=== PATIENT | male | born 1935 | race Caucasian/White ===

== ENCOUNTER → 2016-09-29 | Outpatient (CLI) | payer BC ==
[~2016-09-29] MED LIST: ALLEGRA PO; ASPCH81 PO; ATOR-26 PO; CLOP1TAB15 PO; METO50TA7 PO; NASACORT; OXYC-57 PO; SPIR25TA PO
[2016-09-29 09:33] LABS: BASO % 1.1 %; BASO ABS # 0.09 K/uL (0-0.2); COMPLETE YES; EOS % 9.1 %; HEMATOCRIT 45.1 % (42-52); IG% 0.6 %; LYMPH % 24.5 %; LYMPH ABS # 1.94 K/uL (1.2-3.4); MEAN CELL VOLUME 93.2 fL (80-100); MEAN CORPUSCULAR HEMOGLOBIN 32.4 pg (25-34); MEAN CORPUSCULAR HGB CONC 34.8 g/dl (32-36); MEAN PLATELET VOLUME 10.5 fL (7.4-10.4); MONO % 16.5 %; NEUT % 48.2 %; PLATELET COUNT 184 K/uL (130-400); RED BLOOD COUNT 4.84 M/uL (4.7-6.1); WHITE BLOOD COUNT 7.92 K/uL (4.8-10.8)
[2016-09-29 09:53] LABS: ALB/GLOB RATIO 1.1 (0.9-2); ALT/SGPT 18 U/L (12-78); AST/SGOT 16 U/L (15-37); BLOOD UREA NITROGEN 22 mg/dl (7-18); BUN/CREATININE RATIO 20.3 (10-20); CALCIUM 8.3 mg/dl (8.5-10.1); CARBON DIOXIDE 27 mmol/L (21-32); CHLORIDE 106 mmol/L (98-107); CHOLESTEROL 177 mg/dl (0-200); GLUCOSE 93 mg/dl (70-99); POTASSIUM 3.9 mmol/L (3.5-5.1); SODIUM 141 mmol/L (136-145); TRIGLYCERIDES 76 mg/dl (0-150); VERY LOW DENSITY LIPOPROT CALC 15 mg/dl
[2016-09-29 10:02] LABS: ALKALINE PHOSPHATASE 107 U/L (45-117); CHOLESTEROL/HDL RATIO 2.2; HDL CHOLESTEROL 81 mg/dl; LDL CHOLESTEROL CALCULATED 81 mg/dl
== END | disposition home or self-care (01) ==
LOC: C.LAB1850 07:57
PROVIDERS: ATTEND Internal Medicine Pulmonary Disease
DX: I25.10 Atherosclerotic heart disease of native coronary artery without angina pectoris (principal); E78.5 Hyperlipidemia, unspecified; I25.2 Old myocardial infarction; I11.9 Hypertensive heart disease without heart failure; E03.9 Hypothyroidism, unspecified

== ENCOUNTER → 2017-10-27 | Outpatient (CLI) | payer BC ==
--- NOTE | 2017-10-27 10:55 | DIAGNOSTIC IMAGING REPORT ---
EXAMINATION: RENAL ULTRASOUND CLINICAL HISTORY: N39.0 Urinary tract [id number] BPH (benign prostatic hyperplasia COMPARISON STUDY: FINDINGS: The right kidney measures 9.9 cm. The left kidney measures 10.3 cm. There is mild bilateral hydronephrosis left greater than right. There are no renal masses. The bladder was not well-distended. Neither ureteral jet was visualized. There is a post void volume of 3 cc. IMPRESSION : 1. Very mild bilateral hydronephrosis left greater than right 2. No masses identified. Electronically signed by: King Daniels M.D. 10/27/2017 10:54 AM Dictated Date/Time: 10/27/2017 10:52 AM
== END | disposition home or self-care (01) ==
LOC: C.ULTR 10:06
PROVIDERS: ATTEND Urology
DX: N39.0 Urinary tract infection, site not specified (principal); N40.0 Benign prostatic hyperplasia without lower urinary tract symptoms

== ENCOUNTER 2021-05-27 11:37 | Inpatient (IN) ==
--- NOTE | 2021-05-27 12:08 | Emergency Department Note ---
Impression & Plan CVA (cerebral vascular accident), [facility] ED Provider Note NAME: RENA MARQUEZ AGE: 86 SEX: M : 1935 ARRIVES VIA: Walk-In INFORMANT: Patient ED PROVIDER(S): Jhonny Evans DO CHIEF COMPLAINT: slurred speech HPI: Patient is an 86-year-old male who was seen in the ER this past Tuesday. Symptoms started Tuesday with dizziness and feeling unsteady and slurred speech. Patient was seen and evaluated here in the ER and sent home following a negative CT and CTAs of the head and neck. He followed up with his PCP and had MRIs and was referred over for possible stroke on the MRI. Patient admits to slurred speech and some trouble walking. He denies any headache or change in vision. No chest pain or shortness of breath. No nausea vomiting or diarrhea. No weakness or numbness in his arms or legs. No other exacerbating or remitting factors. ROS: See above HPI for pertinent positives & negatives. A total of 10 systems reviewed and were otherwise negative. PAST MEDICAL HISTORY:See Below PAST SURGICAL HISTORY:See Below FAMILY HISTORY:See Below SOCIAL HISTORY:See Below HOME MEDICATIONS:See Below ALLERGIES:See Below VITALS:See Below PHYSICAL EXAMINATION: GENERAL: Sitting up in bed, alert, well appearing, well nourished, no distress, non-toxic EYE EXAM: normal conjunctiva. PERRL and EOM's grossly intact. OROPHARYNX: no exudate, no erythema, lips, buccal mucosa, and tongue normal and mucous membranes are moist NECK: supple, no nuchal rigidity, no adenopathy, non-tender LUNGS: Clear to auscultation. Normal chest wall mechanics HEART: no murmurs, S1 normal and S2 normal ABDOMEN: abdomen soft, non-tender, normo-active bowel sounds, no masses, no rebound or guarding. BACK: Back is symmetrical on inspection and there is no deformity, no midline tenderness, no CVA tenderness. SKIN: no rashes and no bruising UPPER EXTREMITIES: upper extremities are grossly normal. LOWER EXTREMITIES: No pitting edema. NEURO EXAM: Normal sensorium, cranial nerves II-XII intact, slurred speech, no weakness of arms, no weakness of legs. No drift. Finger to nose intact. Gross sensation intact. MEDICAL DECISION MAKING: Patient is an 6-year-old gentleman who presents the ER for ambulatory dysfunction associate with dizziness and slurred speech. This has been present since this past weekend Tuesday night. He was seen and evaluated here. He returns following having MRIs which showed CVA. IV was established blood work was obtained. Labs show no significant leukocytosis or anemia. INR unremarkable. BMP with slightly elevated chloride. LFTs bilirubin and troponin was negative. Lipase was unremarkable. Covid was negative. Discussed with the hospitalist and admitted the patient for further work-up as he will need PT OT tosin says he is walking with a walker now and an echo. Triage Nursing notes reviewed. Limited review of prior medical records performed Vital Signs: reviewed and remarkable for no significant abnormalities Differential diagnosis: Differential Diagnosis includes but is not limited to ischemic Stroke, hemorrhagic stroke, bells palsy, mass, neoplasm, migraine headache, seizure, subarachnoid hemorrhage, TIA, and transient global amnesia. ER treatment provided: See below Diagnostics interpreted by me: ECG: Sinus rhythm rate 60 Left axis No PVCs Inferior Q waves QTC 408 Cardiac Monitoring: An order was placed for continuous cardiac monitoring. The monitor shows a rate of 62 with sinus rhythm. Laboratory studies: As stated above and show below. Imaging studies: MRI was reviewed which showed stroke Consultation(s): Discussed with Nacho Dejesus for further evaluation Procedures: none Critical Care: None Past Med/Surg History Medical History (Updated 05/27/21 @ 14:50 by Jhonny Evans DO) Allergic rhinitis 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 Elevated PSA Hyperlipidemia Ischemic cardiomyopathy Surgical History H/O cystoscopy H/O eye surgery H/O wrist surgery S/P repair of hydrocele S/P tonsillectomy Family History Son Kidney stone Grandmother FH: throat cancer Sister Allergic rhinitis Asthma Mother Hypertension Other Coronary heart disease Social History Smoking Status: Never smoker Second Hand Exposure: Yes; Hx Alcohol Use: No Hx Substance Use: No Preferred Language: [place]i marital status: Current Living Situation: Alone current occupational status: retired Feels Safe at Home: Yes Allergies Allergies Allergy/AdvReac Type Severity Reaction Status Date / Time Iodinated Contrast Media Allergy Unknown _ Verified 05/27/21 12:58 Penicillins Allergy Unknown Unknown Verified 05/27/21 12:58 asparagus AdvReac Gastrointestinal Verified 05/27/21 12:58 Upset tomato AdvReac Gastrointestinal Verified 05/27/21 12:58 Upset Home Meds Home Medications Medication Instructions Recorded Confirmed coenzyme Q10 200 mg capsule 200 mg PO QAM cap 04/03/19 05/27/21 fexofenadine 180 mg tablet 180 mg PO DAILY tab 04/03/19 05/27/21 metoprolol succinate 50 mg 50 mg PO QAM tab 04/03/19 05/27/21 tablet,extended release 24 hr vitamin E (dl, acetate) 45 mg (100 100 units PO QAM cap 04/03/19 05/27/21 unit) capsule cholecalciferol (vitamin D3) 25 25 mcg PO QAM 05/24/21 05/27/21 mcg (1,000 unit) tablet (Vitamin D3) mometasone 50 mcg/actuation nasal 1 spray INTRANASAL BID 05/24/21 05/27/21 spray rosuvastatin 5 mg tablet 5 mg PO .ON HOLD 05/24/21 05/27/21 aspirin 325 mg tablet 325 mg PO QAM 05/27/21 05/27/21 lisinopril 20 mg tablet 20 mg PO QAM 05/27/21 05/27/21 saw palm 160 mg-vit E 100 1 tab PO QAM 05/27/21 05/27/21 unit-selen 100 [id number]-pygeum tablet (Prostate Health) zinc 50 mg tablet 50 mg PO QAM 05/27/21 05/27/21 Results & Data (ED) Vital Signs Vital Signs - 24 hr 05/27/21 11:43 05/27/21 12:14 05/27/21 12:30 Temperature 36.6 C Temperature Source Oral Pulse Rate 65 61 Pulse Rate from SpO2 Sensor 61 Respiratory Rate 14 16 Respiratory Effort / Characteristics Non-Labored Spontaneous Respiratory Depth Normal Respiratory Pattern Regular Blood Pressure 137/78 147/85 H Blood Pressure Mean 97 105 Pulse Oximetry 94 94 Oxygen Delivery Method Room Air Room Air Room Air 05/27/21 13:00 05/27/21 13:30 05/27/21 14:00 Temperature Temperature Source Pulse Rate 67 63 60 Pulse Rate from SpO2 Sensor Respiratory Rate 23 16 16 Respiratory Effort / Characteristics Respiratory Depth Respiratory Pattern Blood Pressure 152/69 H 138/76 147/81 H Blood Pressure Mean 96 96 103 Pulse Oximetry Oxygen Delivery Method Room Air 05/27/21 14:30 Temperature Temperature Source Pulse Rate 73 Pulse Rate from SpO2 Sensor Respiratory Rate 19 Respiratory Effort / Characteristics Respiratory Depth Respiratory Pattern Blood Pressure 120/100 Blood Pressure Mean 106 Pulse Oximetry Oxygen Delivery Method Room Air Laboratory Data Result diagrams: 05/27/21 12:24 05/27/21 12:24 Lab Results 05/27/21 05/27/21 05/27/21 Range/Units 12:24 12:24 12:24 WBC 7.26 (4.8-10.8) K/uL RBC 4.77 (4.7-6.1) M/uL Hgb 15.3 (14.0-18.0) g/dL Hct 45.0 (42-52) % MCV 94.3 (80-100) fL MCH 32.1 (25-34) pg MCHC 34.0 (32-36) g/dL RDW Std Deviation 47.7 H (36.4-46.3) fL RDW Coeff of Poly 13.8 (11.5-14.5) % Plt Count 183 (130-400) K/uL MPV 10.5 H (7.4-10.4) fL Immature Gran % (Auto) 1.0 % Neut % (Auto) 55.0 % Lymph % (Auto) 20.7 % [place] % (Auto) 19.3 % Eos % (Auto) 2.6 % Baso % (Auto) 1.4 % Neut # (Auto) 4.00 (1.4-6.5) K/uL Lymph # (Auto) 1.50 (1.2-3.4) K/uL [place] # (Auto) 1.40 H (0.11-0.59) K/uL Eos # (Auto) 0.19 (0-0.5) K/uL Baso # (Auto) 0.10 (0-0.2) K/uL Immature Gran # (Auto) 0.07 H (0.00-0.02) K/uL PT 10.6 (9.0-12.0) Seconds INR 1.0 (0.9-1.1) Sodium 139 (136-145) mmol/L Potassium 3.9 (3.5-5.1) mmol/L Chloride 108 H (98-107) mmol/L Carbon Dioxide 24 (21-32) mmol/L Anion Gap 7.0 (3-11) BUN 25 H (7-18) mg/dl Creatinine 1.25 (0.6-1.4) mg/dl Est Cr Clr Drug Dosing 40.2 ml/min Est GFR ( Amer) 59.2 ml/min Est GFR (Non-Af Amer) 51.1 ml/min BUN/Creatinine Ratio 20.2 H (10-20) Glucose 94 (70-99) mg/dl Calcium 8.7 (8.5-10.1) mg/dl Total Bilirubin 1.0 (0.2-1) mg/dl AST 18 (15-37) U/L ALT 17 (12-78) U/L Alkaline Phosphatase 83 (45-117) U/L Troponin I < 0.015 (0-0.045) ng/ml Total Protein 6.8 (6.4-8.2) gm/dl Albumin 3.3 L (3.4-5.0) gm/dl Globulin 3.5 (2.5-4.0) gm/dl Albumin/Globulin Ratio 0.9 (0.9-2) Lipase 170 (73-393) U/L COVID-19 Eval Order SARS-CoV-2 (PCR) (Negative) 05/27/21 05/27/21 Range/Units 12:45 12:45 WBC (4.8-10.8) K/uL RBC (4.7-6.1) M/uL Hgb (14.0-18.0) g/dL Hct (42-52) % MCV (80-100) fL MCH (25-34) pg MCHC (32-36) g/dL RDW Std Deviation (36.4-46.3) fL RDW Coeff of Poly (11.5-14.5) % Plt Count (130-400) K/uL MPV (7.4-10.4) fL Immature Gran % (Auto) % Neut % (Auto) % Lymph % (Auto) % [place] % (Auto) % Eos % (Auto) % Baso % (Auto) % Neut # (Auto) (1.4-6.5) K/uL Lymph # (Auto) (1.2-3.4) K/uL [place] # (Auto) (0.11-0.59) K/uL Eos # (Auto) (0-0.5) K/uL Baso # (Auto) (0-0.2) K/uL Immature Gran # (Auto) (0.00-0.02) K/uL PT (9.0-12.0) Seconds INR (0.9-1.1) Sodium (136-145) mmol/L Potassium (3.5-5.1) mmol/L Chloride (98-107) mmol/L Carbon Dioxide (21-32) mmol/L Anion Gap (3-11) BUN (7-18) mg/dl Creatinine (0.6-1.4) mg/dl Est Cr Clr Drug Dosing ml/min Est GFR ( Amer) ml/min Est GFR (Non-Af Amer) ml/min BUN/Creatinine Ratio (10-20) Glucose (70-99) mg/dl Calcium (8.5-10.1) mg/dl Total Bilirubin (0.2-1) mg/dl AST (15-37) U/L ALT (12-78) U/L Alkaline Phosphatase (45-117) U/L Troponin I (0-0.045) ng/ml Total Protein (6.4-8.2) gm/dl Albumin (3.4-5.0) gm/dl Globulin (2.5-4.0) gm/dl Albumin/Globulin Ratio (0.9-2) Lipase (73-393) U/L COVID-19 Eval Order Covid19 at [facility] SARS-CoV-2 (PCR) NEGATIVE (Negative) Discharge Plan Visit Data Chief Complaint: Abnormal Labs/Diagnostic Testing ED Provider: Jhonny Evans Discharge Problem: CVA (cerebral vascular accident), [facility] Forms Stand Alone Forms: My [facility] [place] [employer] Grab Prescriptions Prescriptions: No Action coenzyme Q10 200 mg capsule 200 mg PO QAM RF: 0 fexofenadine 180 mg tablet 180 mg PO DAILY RF: 0 metoprolol succinate 50 mg tablet extended release 24 hr 50 mg PO QAM RF: 0 vitamin E (dl, acetate) 100 unit capsule 100 units PO QAM RF: 0 mometasone 50 mcg/actuation [place],Non-Aerosol 1 spray INTRANASAL BID RF: 0 cholecalciferol (vitamin D3) [Vitamin D3] 25 mcg (1,000 unit) Tablet 25 mcg PO QAM RF: 0 rosuvastatin 5 mg tablet 5 mg PO .ON HOLD RF: 0 aspirin 325 mg Tablet 325 mg PO QAM RF: 0 lisinopril 20 mg tablet 20 mg PO QAM RF: 0 zinc 50 mg Tablet 50 mg PO QAM RF: 0 Prostate Health 160-100-100 mg-unit-mcg Tablet 1 tab PO QAM RF: 0 Referrals Referrals: Nacho Rolle MD [Primary Care Provider] -
[2021-05-27 12:39] LABS: Basophils % (auto) 1.4 %; Eosinophils # (auto) 0.19 K/uL (0-0.5); Eosinophils % (auto) 2.6 %; Hemoglobin 15.3 g/dL (14.0-18.0); Immature Granulocytes # (auto) 0.07 K/uL (0.00-0.02); Lymphocytes % (auto) 20.7 %; Mean Corpuscular Hemoglobin 32.1 pg (25-34); Mean Corpuscular Volume 94.3 fL (80-100); Mean Platelet Volume 10.5 fL (7.4-10.4); Monocytes % (auto) 19.3 %; Platelet Count 183 K/uL (130-400); RDW Coefficient of Variation 13.8 % (11.5-14.5); RDW Standard Deviation 47.7 fL (36.4-46.3); Red Blood Count 4.77 M/uL (4.7-6.1); White Blood Count 7.26 K/uL (4.8-10.8)
[2021-05-27 12:59] LABS: Alanine Aminotransferase 17 U/L (12-78); Albumin Level 3.3 gm/dl (3.4-5.0); Aspartate Aminotransferase 18 U/L (15-37); BUN Creatinine Ratio 20.2 (10-20); Blood Urea Nitrogen 25 mg/dl (7-18); Calcium 8.7 mg/dl (8.5-10.1); Carbon Dioxide 24 mmol/L (21-32); Chloride 108 mmol/L (98-107); Creatinine Clr Calc Pharmacy 40.2 ml/min; Est GFR (African American) 59.2 ml/min; Est GFR (Non-African American) 51.1 ml/min; Glucose 94 mg/dl (70-99); Lipase 170 U/L (73-393); Potassium 3.9 mmol/L (3.5-5.1); Sodium 139 mmol/L (136-145)
[2021-05-27 13:07] LABS: Albumin Globulin Ratio 0.9 (0.9-2); Alkaline Phosphatase 83 U/L (45-117); Globulin 3.5 gm/dl (2.5-4.0); Total Protein 6.8 gm/dl (6.4-8.2); Troponin I < 0.015 ng/ml (0-0.045)
--- NOTE | 2021-05-27 13:54 | History & Physical Report ---
Date of Service May 27, 2021 Assessment & Plan (1) CVA (cerebral vascular accident): Plan: Evidence for an acute infarct involving the brainstem and superior aspect of the rowdy centrally and to the left with There is likely hemodynamically significant stenosis of the right vertebral artery at C4-C5 due to degenerative changes in the cervical spine. This finding is likely chronic. - Risk factors- HTN, HLD, ? 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 - PT/OT consult - Evaluate for ambulatory assistance needs (3) Vertebral artery stenosis: Plan: likely hemodynamically significant stenosis of the right vertebral artery at C4-C5 due to degenerative changes in the cervical spine- results in likely greater than 70% narrowing - Consider follow up as outpatient for further evaluation (4) Dysarthria: Plan: Mild as above (5) Ischemic cardiomyopathy: Plan: Secondary to LAD disease in 2009 - EF 45 % [place] [facility] [place] as above [place] - Continue BB, ASA, LUC, Statin as above (6) Allergic rhinitis: Plan: Continue mometasone and fexofenadine (7) Arteriosclerotic coronary artery disease: Plan: As above - stents since 2009 - AUG with stent to LAD- instent stenosis November 2009- stent and balloon angioplasty, (8) BPH without obstruction/lower urinary tract symptoms: Plan: Stable follow with bladder scans in house (9) Hyperlipidemia: Plan: On rosuvastatin 5mg PO daily and Coq10 - Lipid panel in the morning evaluate - Has had intolerance to statin with myalgias - also voices reluctance in statin therapy secondary to his heart and stents with higher dose back in 2009 (10) Excessive cerumen in right ear canal: Plan: Debrox to right ear 2 Drops q8h- follow History of Present Illness Primary Care Provider: Nacho Rolle MD 86 YOM with past medical history of: CAD (LAD stenting with in stent thrombosis 2009), VF arrest, ICM(EF 45%), HTN, HLD, vertigo, seasonal allergies, BPH. Patient comes to the emergency room today for continued dysequilibrium and gait unsteadiness, now requiring a walker to ambulate. The patient was originally seen on 25MAY2021 for complaints of dizziness, dysequilibrium- this started on at ~0130 in the morning that he recalls getting up to go to the bathroom and felt dizzy with difficulty ambulating secondary to balance instability. He originally thought it was vertigo as he has had this before, but this episode was not associated with any room spinning. This was not associated with any headache, vision changes, focalized weakness, inability to read or write, or aphasia. The patient symptoms did progress at that time with some slurring of his speech, where he called his PCP and was referred to the EMD on . During that EMD visit the patient had a CT scan of his head, CTA of his head and neck completed, had his aspirin dose increased to 324mg PO daily and was to continue his further CVA/TIA workup as outpatient with ECHO and MRI. He had his MRI of the brain completed today() and noted to have Evidence for an acute infarct involving the brainstem and superior aspect of the rowdy centrally and to the left. He was also scheduled to have his ECHO completed today as outpatient, but this will be ordered as inpatient. Patient will be admitted for PT/OT evaluation and modification of medications based on risk assessment. His COVID test on admission is: NEGATIVE Allergies Allergy/AdvReac Type Severity Reaction Status Date / Time Iodinated Contrast Media Allergy Unknown _ Verified 05/27/21 12:58 Penicillins Allergy Unknown Unknown Verified 05/27/21 12:58 asparagus AdvReac Gastrointestinal Verified 05/27/21 12:58 Upset tomato AdvReac Gastrointestinal Verified 05/27/21 12:58 Upset Home Medications Medication Instructions Recorded Confirmed Type coenzyme Q10 200 mg capsule 200 mg PO QAM cap 04/03/19 05/27/21 History fexofenadine 180 mg tablet 180 mg PO DAILY tab 04/03/19 05/27/21 History metoprolol succinate 50 mg 50 mg PO QAM tab 04/03/19 05/27/21 History tablet,extended release 24 hr vitamin E (dl, acetate) 45 mg (100 100 units PO QAM cap 04/03/19 05/27/21 History unit) capsule cholecalciferol (vitamin D3) 25 25 mcg PO QAM 05/24/21 05/27/21 History mcg (1,000 unit) tablet (Vitamin D3) mometasone 50 mcg/actuation nasal 1 spray INTRANASAL BID 05/24/21 05/27/21 History spray rosuvastatin 5 mg tablet 5 mg PO .ON HOLD 05/24/21 05/27/21 History aspirin 325 mg tablet 325 mg PO QAM 05/27/21 05/27/21 History lisinopril 20 mg tablet 20 mg PO QAM 05/27/21 05/27/21 History saw palm 160 mg-vit E 100 1 tab PO QAM 05/27/21 05/27/21 History unit-selen 100 frc-zhnl-sjkoah-pygeum tablet (Prostate Health) zinc 50 mg tablet 50 mg PO QAM 05/27/21 05/27/21 History Past Med/Surg History Medical History Allergic rhinitis 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 Elevated PSA Hyperlipidemia Ischemic cardiomyopathy Surgical History H/O cystoscopy H/O eye surgery H/O wrist surgery S/P repair of hydrocele S/P tonsillectomy Family History Son Kidney stone Grandmother FH: throat cancer Sister Allergic rhinitis Asthma Mother Hypertension Other Coronary heart disease Social History Smoking Status: Never smoker Second Hand Exposure: Yes; Hx Alcohol Use: No Hx Substance Use: No Preferred Language: [place] marital status: Current Living Situation: Alone current occupational status: retired Feels Safe at Home: Yes Review of Systems Review of Systems: REVIEW OF SYSTEMS: Constitutional: No fever, sweats or chills Eyes: No diplopia, no worsening or blurred vision ENT: (+) tinnitus, cerumen impaction to right ear, no trouble swallowing or chewing Respiratory: No cough, sputum, dyspnea at rest or on exertion Cardiovascular: No chest pain, tightness or palpitations Abdomen: No pain, nausea, vomiting, diarrhea or constipation Musculoskeletal: No joint pain, calf pain, swelling Neurologic: (+) balance problems with need for ambulatory aid, weakness, numbness/tingling, Psychiatric: No anxiety or depression Skin: No rash or itch Physical Exam Physical Exam: PHYSICAL EXAM: General: awake, alert, no apparent distress Head: Normocephalic, atraumatic ENT: Right ear with cerumen blocking canal, left ear with mild cerumen but normal TM, no pharyngeal exudate, mucous membranes moist Neuro: PERRL, EOMI, AAO x 3, speech clear and appropriate, strength intact bilaterally 5/5, sensation intact and equal all extremities and dermatomes, no pronator drift, overshoot with finger to nose with right hand, decrease fine motor coordination with right hand, normal hell to valentino, heel to toe with walker with gat wobbling and decrease coordination with right foot. NO vision changes and peripheral vision is intact. Chest: equal rise and fall of the chest, no accessory muscle use, no heaves or thrills, Clear to auscultation, on room air, Cardiac: Regular rate and rhythm, telemetry reviewed, skin warm dry, cap refill <3 seconds, peripheral pulses +2 no JVD, no murmur, no edema GI: NABS x 4 quadrants, soft, nontender to palpation, no rebound, guarding or tenderness : Spontaneously voiding, no pain, no CVA tenderness, Extremities: Normal inspection, no peripheral edema or erythema, calfs nontender to palpation Psych: Normal mood and affect Skin: no rash or erythema Results & Data Results & Data ([facility]) Vital Signs (Past 12 Hours) Vital Signs Temp Pulse Resp BP Pulse Ox 05/27/21 13:00 67 23 152/69 H 05/27/21 12:30 61 16 147/85 H 94 05/27/21 11:43 36.6 C 65 14 137/78 94 Laboratory Results Abnormal lab results 05/27/21 05/27/21 Range/Units 12:24 12:24 RDW Std Deviation 47.7 H (36.4-46.3) fL MPV 10.5 H (7.4-10.4) fL [place] # (Auto) 1.40 H (0.11-0.59) K/uL Immature Gran # (Auto) 0.07 H (0.00-0.02) K/uL Chloride 108 H (98-107) mmol/L BUN 25 H (7-18) mg/dl BUN/Creatinine Ratio 20.2 H (10-20) Albumin 3.3 L (3.4-5.0) gm/dl Diagnostic Findings CT angio head w con, CT angio neck with con, CT head/brain wo con- Dictated:05/24/212009 Transcribed: 05/24/212009 CLINICAL HISTORY: Stroke Like Symptoms TECHNIQUE: Contiguous axial CT images of the head were acquired from the base of the skull to the vertex without intravenous contrast administration. CT angiography of the head and neck was performed following intravenous administration of iodinated contrast. Automated dose lowering techniques and/or adjustment according to patient size were utilized for this examination. Comparison: None available at the time of this dictation. FINDINGS: CT head: Areas of decreased attenuation are present in the periventricular and subcortical white matter bilaterally consistent with small vessel ischemic disease. Generalized cerebral atrophy with commensurate enlargement of the ventricles, sulci, and cisterns is also present. There is no acute intracranial hemorrhage or evidence of acute territorial infarction. No shift of the midline structures, mass effect, or extra-axial abnormalities are shown. Atherosclerotic calcifications are present in the intracranial segments of the internal carotid arteries. CTA Neck: A 3 vessel aortic arch is shown. Atherosclerotic plaque is present in the aortic arch and at the origin of the great vessels. Atherosclerotic plaque is present at the origin of the right vertebral artery. The common carotid, external carotid, cervical segments of the internal carotid arteries, and the cervical segments of the vertebral arteries are patent. At the C4-C5 level, there is focal narrowing of the right vertebral artery due to osteophyte formation and facet arthropathy. This results in likely greater than 70% narrowing of the vessel. Incidentally noted is tortuosity of the proximal common carotid arteries. The left vertebral artery is dominant. Biapical scarring is seen in the lungs. CTA Head: The anterior and posterior cerebral circulations are patent. No hemodynamically significant stenosis, aneurysm, dissection, or arteriovenous malformation is shown. Atherosclerotic disease is noted. IMPRESSION: 1. No occlusion, hemodynamically significant stenosis, aneurysm, dissection, or arteriovenous malformation in the major intracranial arteries. 2. There is likely hemodynamically significant stenosis of the right vertebral artery at C4-C5 due to degenerative changes in the cervical spine. This finding is likely chronic. 3. No acute intracranial hemorrhage, evidence of acute territorial infarction, or other acute intracranial disease process. Expected age-related changes of the brain parenchyma are seen. Assessment of stenosis of the internal carotid arteries is based on NASCET criteria. ACT 112: Negative or not required by law. Electronically signed by: Martinez Soto M.D. 05/24/2021 8:16 PM MR brain wo con CLINICAL HISTORY: G45.9 - Transient cerebral ischemic attack, unspecified. Episode of vertigo and slurred speech on Tuesday. COMPARISON STUDY: No previous studies for comparison. TECHNIQUE: Multiplanar multisequence images of the Brain were performed without IV contrast. Diffusion weighted imaging and ADC mapping was also performed. FINDINGS: Extra-axial space: There is no evidence for a subdural hematoma, There are no extra-axial fluid collections. Ventricles and cisterns: The ventricles are mildly dilated bilaterally. There is no evidence for midline shift or mass effect. Parenchyma: There is evidence for an acute infarct involving the brainstem and superior aspect of the rowdy centrally and to the left. Largest infarct measures approximately 4.5 mm. Acute diffusion abnormalities are noted on diffusion weighted imaging and ADC mapping. There is otherwise normal jay-white differentiation. There is mild cerebral cortical atrophy present. The sulci and gyri appear normal without effacement. The midline structures are unremarkable. The posterior fossa structures appear normal. There is no evidence for cerebellar infarct. There is no evidence for mass lesion. Osseous structures: The paranasal sinuses are well aerated. The mastoid air cells are well aerated. Soft tissues: No focal soft tissue abnormalities are identified. IMPRESSION: Evidence for an acute infarct involving the brainstem and superior aspect of the rowdy centrally and to the left. The patient was sent to the emergency department following the study. Dr. Evans was called with the results. ACT 112: Negative or not required by law. Electronically signed by: Db Kirk M.D. 05/27/2021 12:24 PM Dictated:05/27/21 1211 Transcribed: 05/27/21 1211 Medications Administered Home Medications coenzyme Q10 200 mg capsule 200 mg PO QAM cap 04/03/19 [History Confirmed 05/27/21] fexofenadine 180 mg tablet 180 mg PO DAILY tab 04/03/19 [History Confirmed 05/25/21] metoprolol succinate 50 mg tablet,extended release 24 hr 50 mg PO DAILY tab 04/03/19 [History Confirmed 05/25/21] vitamin E (dl, acetate) 45 mg (100 unit) capsule 100 units PO DAILY cap 04/03/19 [History Confirmed 05/25/21] cholecalciferol (vitamin D3) 25 mcg (1,000 unit) tablet (Vitamin D3) 25 mcg PO QAM 05/24/21 [History Confirmed 05/27/21] mometasone 50 mcg/actuation nasal spray 1 spray INTRANASAL BID 05/24/21 [History Confirmed 05/25/21] rosuvastatin 5 mg tablet 5 mg PO .ON HOLD 05/24/21 [History Confirmed 05/25/21] aspirin 325 mg tablet 325 mg PO QAM 05/27/21 [History Confirmed 05/27/21] lisinopril 20 mg tablet 20 mg PO QAM 05/27/21 [History Confirmed 05/27/21] saw palm 160 mg-vit E 100 unit-selen 100 jol-nybm-ypbvan-pygeum tablet (Prostate Health) 1 tab PO QAM 05/27/21 [History Confirmed 05/27/21] zinc 50 mg tablet 50 mg PO QAM 05/27/21 [History Confirmed 05/27/21] ECG Additional Comments: Sinus rhythm with 1st degree A-V block Cannot rule out Anterior infarct (cited on or before 27-MAY-2021) Abnormal ECG When compared with ECG of 24-MAY-2021 16:51, No significant change was found Code Status & VTE Plan Code Status CODE: FULL VTE: SCDs, Heparin 5000 sub q Q12 VTE Prophylaxis Plan VTE Prophylaxis will be ordered: Yes Supervising Physician Co-Signing Physician Notes Attending Attestation and Admission Note - Pt seen/examined, chart reviewed, care plan d/w BAILEY Vann. I agree w/ the meek components of his documentation. 86yo male with CAD, chronic systolic CHF 2nd ischemic cardiomyopathy, hyperlipidemia, BPH - presented on 05/24 to the ER with "dizziness", unsteadiness on his feet, and dysarthria. TIA/CVA w/u was negative. Was d/c home with instructions to increase his asa to 325mg daily. Saw Dr Rolle his PCP in f/u on 05/25. Arrangements were being made for MRI brain and echo as outpatient. Symptoms persisted with progressive difficulty walking and thus he came to the ER for evaluation. MRI brain was ordered in ER -- this showed subacute stroke in the left/central rowdy. During my bedside assessment he had obvious dysarthria. He blamed much of his right hand symptoms from spinal stenosis of the neck. PMH, PSH, allergies, meds, sochx, famhx - reviewed VSS, afebrile gen - NAD, dysarthric speech mouth - MMM neck - no JVD heart - RRR, s1 s2 lungs - CTA b/l abd - soft NT ND BS+ ext - no edema, pulses 2+ b/l neuro - dysarthric speech; no aphasia; no facial droop; no pronator drift; intrinsic muscle wasting of small muscles of b/l hands, R>L; apraxia of right hand with complex maneuvers/tasks; strength b/l arms 5/5; strength b/l legs 5/5; heel-valentino maneuver - slight impairment on right?? left heel-valentino wnl; gait not assessed labs reviewed imaging including MRI and recent CTAs reviewed EKG - NSR, no ST changes A/P: 1. subacute brainstem stroke (pontine) on left - with resulting dysarthria, rig ht hand/leg symptoms. Was taking 81mg asa daily when this CVA occurred. No benefit in increasing the asa to 325mg. Add plavix to the aspirin; reduce latter back to 81mg daily. PT, OT, speech evals. Echo. tele. lipids am. Formal neurology consult. 2. CKD stage 3 - BMP am for stability. 3. HTN - allow some permissiveness in BPs. 4. vertebral artery stenosis - unrelated to #1 above. Asa, plavix, statin, etc. son updated at bedside Romeo Blunt MD PG Care Time/CCT Total # of Minutes Spent Total Time Spent with Patient: Total time spent is greater than 50% in coordination of care (as documented) at patient's floor/unit and/or counseling patient: Coding Level of Care Code 54673 Initial Inpt Care Lvl 3 Diagnoses CVA (cerebral vascular accident) I63.9 Dysequilibrium R42 Dysarthria R47.1 Ischemic cardiomyopathy I25.5 Allergic rhinitis J30.9 Arteriosclerotic coronary artery disease I25.10 BPH without obstruction/lower urinary tract symptoms N40.0 Hyperlipidemia E78.5 Excessive cerumen in right ear canal H61.21 Vertebral artery stenosis I65.09
[2021-05-27 14:35] LABS: Prothrombin Time 10.6 Seconds (9.0-12.0)
--- NOTE | 2021-05-27 14:51 | Electrocardiogram Report ---
Test Reason : Blood Pressure : / mmHG Vent. Rate : 060 BPM Atrial Rate : 060 BPM P-R Int : 278 ms QRS Dur : 090 ms QT Int : 408 ms P-R-T Axes : 047 -14 027 degrees QTc Int : 408 ms Sinus rhythm with 1st degree A-V block Abnormal ECG When compared with ECG of 24-MAY-2021 16:51, No significant change was found Confirmed by Yvan Aguilar ([id number]) on 05/27/2021 2:50:49 PM Referred By: REFERRED SELF Confirmed By:Jovi Aguilar
[2021-05-27] MEDS ORDERED: PHARMACIST DISCHARGE MED REC CONSULT PRN (17:37)
[2021-05-27] MEDS ORDERED: ACETAMINOPHEN 325 MG TAB PO PRN (17:37)
[2021-05-27] MEDS: CLOPIDOGREL BISULFATE 75 MG TAB PO SCH (18:36)
[2021-05-27] MEDS: ROSUVASTATIN CALCIUM 5 MG TAB PO SCH (18:36)
[2021-05-27] MEDS: CARBAMIDE PEROXIDE 6.5% 15 ML BTL OTR SCH (18:39)
[2021-05-27] MEDS: FLUTICASONE PROPIONATE NA SPR 16 GM BTL SCH (21:11)
[2021-05-28] MEDS: CARBAMIDE PEROXIDE 6.5% 15 ML BTL OTR SCH ×2 (01:09→06:25)
[2021-05-28 08:02] LABS: Basophils # (auto) 0.15 K/uL (0-0.2); Basophils % (auto) 1.9 %; Eosinophils # (auto) 0.31 K/uL (0-0.5); Hematocrit (blood only) 48.3 % (42-52); Hemoglobin 16.4 g/dL (14.0-18.0); Immature Granulocytes # (auto) 0.09 K/uL (0.00-0.02); Immature Granulocytes % (auto) 1.1 %; Lymphocytes # (auto) 1.74 K/uL (1.2-3.4); Lymphocytes % (auto) 22.2 %; Mean Corpuscular Hemoglobin 32.2 pg (25-34); Mean Corpuscular Volume 94.7 fL (80-100); Mean Platelet Volume 10.8 fL (7.4-10.4); Monocytes # (auto) 1.33 K/uL (0.11-0.59); Neutrophils # (auto) 4.21 K/uL (1.4-6.5); Neutrophils % (auto) 53.8 %; Platelet Count 184 K/uL (130-400); RDW Coefficient of Variation 13.9 % (11.5-14.5); White Blood Count 7.83 K/uL (4.8-10.8)
[2021-05-28] MEDS: FLUTICASONE PROPIONATE NA SPR 16 GM BTL SCH (08:04)
[2021-05-28] MEDS: CLOPIDOGREL BISULFATE 75 MG TAB PO SCH (08:04)
[2021-05-28] MEDS: ROSUVASTATIN CALCIUM 5 MG TAB PO SCH (08:04)
[2021-05-28] MEDS ORDERED: METOPROLOL SUCC 50MG EXT REL TAB PO SCH (09:00)
[2021-05-28] MEDS ORDERED: lisinopril 20 MG TAB PO SCH ×2 (09:00)
[2021-05-28] MEDS ORDERED: NON-FORMULARY MEDICATION (Aspirin 81 mg tablet) PO SCH (09:00)
[2021-05-28] MEDS ORDERED: ASPIRIN 81 MG ECTAB PO SCH (09:00)
[2021-05-28 09:09] LABS: BUN Creatinine Ratio 18.3 (10-20); Calcium 9.1 mg/dl (8.5-10.1); Creatinine Clr Calc Pharmacy 45.3 ml/min; Est GFR (African American) 68.3 ml/min; Potassium 4.1 mmol/L (3.5-5.1)
[2021-05-28 09:13] LABS: Magnesium 2.2 mg/dl (1.8-2.4)
--- NOTE | 2021-05-28 10:24 | Neurology Consultation ---
Date of Consultation May 28, 2021 Assessment & Plan (1) Left pontine stroke: (2) Vertebral artery stenosis: Acute to subacute multifocal left pontine stroke presenting with dizziness, disequilibrium, dysarthria, lingual deviation, and left hemiataxia. Patient also has a chronic cervical right vertebral stenosis. Stroke risk factors for this patient include hypertension and hyperlipidemia. He has been taking daily aspirin at time of symptom onset. His rosuvastatin have been on ho ld. He has a history of intolerance to high intensity statin therapy. Patient stroke appears to be most consistent with small vessel ischemia, basilar perforators. No evidence of vascular thrombosis. The significance of the chronic cervical right vertebral stenosis in the context of his current ischemic stroke is uncertain. Cardioembolism may not be completely excluded. I agree with current management including dual antiplatelet therapy, clopidogrel 75 mg/day, aspirin 81 mg/day. Would recommend dual antiplatelet therapy for the next 3 weeks, then discontinue aspirin and continue with clopidogrel 75 mg/day. Continue with rosuvastatin. Would also recommend 30-day mobile outpatient cardiac telemetry. Follow-up with echocardiogram. Allow for permissive hypertension acutely, systolic blood pressure 140 to 160 mmHg. Patient will need PT/OT/speech therapy. History of Present Illness Reason for Consultation: Brainstem stroke Requesting Physician: BAILEY Cagle Attending Physician: Khris Ochoa MD History of Present Illness The patient is an 86-year-old male with a chief complaint of feeling off balance, dizziness, and slurred speech that began on May 22. He presented to the emergency department for further evaluation on May 25 and was noted to have some mild ataxia and difficulty with rightward gaze at that time. He did have a CT of the head including CT angiography of the head and neck on May 24 that was negative for occlusion or hemodynamically significant stenosis of the intracranial arteries. There was a chronic stenosis of the right vertebral artery at the C4-5 level due to degenerative changes in the cervical spine. There is no evidence of hemorrhage or acute process at that time. Admission for stroke was recommended although patient declined at that time. His dosage of aspirin was increased and he was instructed to follow-up with his PCP for urgent outpatient evaluation. He did have an MRI completed as an outpatient yesterday that revealed an acute brainstem infarct, anterolateral left aspect of the rowdy. He was instructed to return to the emergency department for further evaluation and management at admission for full stroke evaluation. The patient has continued to have difficulty with slurred speech and ataxia. He denies experiencing any vision disturbance or difficulty swallowing. He denies any sensory loss. He denies any headache. He is currently receiving clopidogrel and daily low-dose aspirin as well as Crestor. He expresses interest in going home today. His neurologic symptoms have persisted, but not worsened. Allergies Allergy/AdvReac Type Severity Reaction Status Date / Time Iodinated Contrast Media Allergy Unknown _ Verified 05/27/21 12:58 Penicillins Allergy Unknown Unknown Verified 05/27/21 12:58 asparagus AdvReac Gastrointestinal Verified 05/27/21 12:58 Upset tomato AdvReac Gastrointestinal Verified 05/27/21 12:58 Upset Home Medications Medication Instructions Recorded Confirmed Type coenzyme Q10 200 mg capsule 200 mg PO QAM cap 04/03/19 05/27/21 History fexofenadine 180 mg tablet 180 mg PO DAILY tab 04/03/19 05/27/21 History metoprolol succinate 50 mg 50 mg PO QAM tab 04/03/19 05/27/21 History tablet,extended release 24 hr vitamin E (dl, acetate) 45 mg (100 100 units PO QAM cap 04/03/19 05/27/21 History unit) capsule cholecalciferol (vitamin D3) 25 25 mcg PO QAM 05/24/21 05/27/21 History mcg (1,000 unit) tablet (Vitamin D3) mometasone 50 mcg/actuation nasal 1 spray INTRANASAL BID 05/24/21 05/27/21 History spray rosuvastatin 5 mg tablet 5 mg PO .ON HOLD 05/24/21 05/27/21 History aspirin 325 mg tablet 325 mg PO QAM 05/27/21 05/27/21 History lisinopril 20 mg tablet 20 mg PO QAM 05/27/21 05/27/21 History saw palm 160 mg-vit E 100 1 tab PO QAM 05/27/21 05/27/21 History unit-selen 100 jmr-lxtx-izqyaw-pygeum tablet (Prostate Health) zinc 50 mg tablet 50 mg PO QAM 05/27/21 05/27/21 History Patient History Medical History (Updated 05/28/21 @ 10:44 by William Mckeon MD) Allergic rhinitis 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 Elevated PSA Hyperlipidemia Ischemic cardiomyopathy Surgical History H/O cystoscopy H/O eye surgery H/O wrist surgery S/P repair of hydrocele S/P tonsillectomy Family History Son Kidney stone Grandmother FH: throat cancer Sister Allergic rhinitis Asthma Mother Hypertension Other Coronary heart disease Social History Smoking Status: Never smoker Second Hand Exposure: No; Hx Alcohol Use: No Hx Substance Use: No Preferred Language: Telugu Communication Ability: Effective Mix Technician Required: No Beliefs That Will Affect Care: None and Yarsani Yarsani Beliefs: Patient is Rastafarian marital status: Current Living Situation: Alone current occupational status: retired Feels Safe at Home: Yes Assistive Devices: Glasses and Walker Review of Systems Constitutional: no fever and no chills Eyes: no blind spots and no diplopia Ear, Nose, Mouth, Throat: + hearing loss (chronic); no ear pain Respiratory: no cough and no dyspnea Cardiovascular: no chest pain and no palpitations Gastrointestinal: no constipation and no diarrhea/loose stools Genitourinary: no urinary incontinence or no urinary urgency Musculoskeletal: no muscle weakness and no muscle atrophy Integumentary: no rash and no lesions Neurologic: as per Subjective / HPI, + gait abnormality and + unsteadiness; no loss of sensation, no tremor(s), no syncope, no headache(s) and no memory loss Psychiatric: no behavioral changes, no depression, no abnormal sleep pattern and no anxiety Hematologic / Lymphatic: no easy bruising and no lymphadenopathy Exam (Neuro) Constitutional: well developed and well nourished; no acute distress Eyes: normal visual laguna by confrontation, PERRL, normal accommodation and EOM intact bilaterally; no fundoscopic abnormality, no nystagmus and no papilledema Cardiovascular: Vessels: normal carotid upstroke; no carotid bruit Neurologic: Oriented to:: Person, Place and Time Memory: Short Term Intact and Remote Intact Attention: Span Intact and Concentration Intact Language: Naming Objects and Repeating Phrases Speech Fluency: Dysarthria Speech Aphasia: negative Aphasia Fund of Knowledge: Current Events, Past History and Vocabulary Cranial Nerves: Normal II (Visual laguna full to confrontation, visual acuity normal), III, IV, (Pupils equal round reactive to light and accommodation, eye movements normal), V (Facial sensation intact), VII (There is no facial droop or weakness), VIII (Hearing intact), IX, X (Palate elevates to midline), XI (Shoulder shrug intact) and XII (Tongue deviates to the right with protrusion) Motor Strength: Normal Lower Extremities and Normal Upper Extremities; negative Pronator Drift Motor Tone: Normal Lower Extremities and Normal Upper Extremities Muscle Bulk/Involuntary Movements: No Involuntary Movements; negative Muscle Atrophy Sensation: Light Touch Intact, Pain/Temperature Intact, Vibration Intact and Proprioception Intact Coordination: Normal, Dysdiadochokinesia Laterality: Left, Finger-Nose Abnormal Laterality: Left and Heel-Ching Abnormal Laterality: Left; negative Limited Balance Deep Tendon Reflexes: Rt Triceps: 2+, Lt Triceps: 2+, Rt Biceps: 2+, Lt Biceps: 2+, Rt Brachioradialis: 2+, Lt Brachioradialis: 2+, Rt Patellar: 1+, Lt Patellar: 1+, Rt Ankle: 1+ and Lt Ankle: 1+ Special Tests: negative Babinski Present Gait: Ataxic Results & Data ([facility]) Vital Signs (Past 12 Hours) Vital Signs Temp Pulse Pulse Resp BP Pulse Ox 05/28/21 07:27 36.6 C 62 20 181/76 H 93 05/28/21 06:16 64 05/28/21 03:36 36.6 C 60 18 148/70 H 93 05/27/21 23:00 63 05/27/21 22:42 37.0 C 54 L 18 139/75 95 Laboratory Results WBC 7.83, hemoglobin 16.4, hematocrit 48.3, platelet count 184, sodium 138, potassium 4.1, BUN 20, creatinine 1.11, glucose 98, AST 18, ALT 17, troponin less than 0.015, triglycerides 78, cholesterol 196, LDL 104, VLDL 16, HDL [address] angiography of the head and neck and brain MRI are as described in the history of present illness. I reviewed the images as well as the radiologist's interpretation of these tests. The pontine stroke is multifocal, left anterior and left midline. There is a faint area of restricted diffusion to the left midline superiorly in the rowdy as well. An electrocardiogram revealed a sinus rhythm with first-degree AV block, 60 bpm. Coding Level of Care Code 76282 Initial Inpt Care Lvl 3 Diagnoses Left pontine stroke I63.9 Vertebral artery stenosis I65.09
[2021-05-28 10:44] LABS: Estimated Average Glucose 114 mg/dl; Hemoglobin A1C 5.6 % (4.5-5.6)
--- NOTE | 2021-05-28 13:30 | XCELERA ---
[id number]
[2021-05-28] MEDS ORDERED: STROKE PATIENT DISCHARGE STA (13:51)
--- NOTE | 2021-05-28 14:06 | Electrocardiogram Report ---
Test Reason : Blood Pressure : / mmHG Vent. Rate : 075 BPM Atrial Rate : 075 BPM P-R Int : 266 ms QRS Dur : 092 ms QT Int : 390 ms P-R-T Axes : 052 -08 022 degrees QTc Int : 435 ms Sinus rhythm with 1st degree A-V block with occasional Premature ventricular complexes Cannot rule out Anteroseptal infarct (cited on or before 28-MAY-2021) Abnormal ECG When compared with ECG of 28-MAY-2021 10:38, (unconfirmed) Premature ventricular complexes are now Present Confirmed by Yvan Aguilar ([id number]) on 05/28/2021 2:05:51 PM Referred By: REFERRED SELF Confirmed By:Jovi Aguilar
--- NOTE | 2021-05-28 14:35 | Discharge Summary ---
Date of Service May 28, 2021 Admission HPI Per Admitting Provider 86 YOM with past medical history of: CAD (LAD stenting with in-stent thrombosis 2009), VF arrest, ICM(EF 45%), HTN, HLD, vertigo, seasonal allergies, BPH. Patient comes to the emergency room for continued dysequilibrium and gait unsteadiness, now requiring a walker to ambulate. The patient was originally seen on 05/24 in ED for complaints of dizziness, dysequilibrium- this started on 05/23 at ~0130 in the morning that he recalls getting up to go to the bathroom and felt dizzy with difficulty ambulating secondary to balance instability. He originally thought it was vertigo as he has had this before, but this episode was not associated with any room spinning. This was not associated with any headache, vision changes, focalized weakness, inability to read or write, or aphasia. The patient symptoms did progress at that time with some slurring of his speech, where he called his PCP and was referred to the ED on 05/24. During the visit the patient had a CT scan of his head, CTA of his head and neck com pleted, had his aspirin dose increased to 324mg PO daily and was to continue his further CVA/TIA workup as outpatient with ECHO and MRI as he declined admission to the hospital. He had his MRI of the brain completed on 05/27 and noted to have evidence for an acute infarct involving the brainstem and superior aspect of the rowdy centrally and to the left. He was also scheduled to have his ECHO completed today as outpatient, but this will be ordered as inpatient. Patient was admitted for PT/OT evaluation and modification of medications based on risk assessment. Admission Exam Per Admitting Provider General: awake, alert, no apparent distress Head: Normocephalic, atraumatic ENT: Right ear with cerumen blocking canal, left ear with mild cerumen but normal TM, no pharyngeal exudate, mucous membranes moist Neuro: PERRL, EOMI, AAO x 3, speech clear and appropriate, strength intact bilaterally 5/5, sensation intact and equal all extremities and dermatomes, no pronator drift, overshoot with finger to nose with right hand, decrease fine motor coordination with right hand, normal hell to valentino, heel to toe with walker with gat wobbling and decrease coordination with right foot. NO vision changes and peripheral vision is intact. Chest: equal rise and fall of the chest, no accessory muscle use, no heaves or thrills, Clear to auscultation, on room air, Cardiac: Regular rate and rhythm, telemetry reviewed, skin warm dry, cap refill <3 seconds, peripheral pulses +2 no JVD, no murmur, no edema GI: NABS x 4 quadrants, soft, nontender to palpation, no rebound, guarding or tenderness : Spontaneously voiding, no pain, no CVA tenderness, Extremities: Normal inspection, no peripheral edema or erythema, calfs nontender to palpation Psych: Normal mood and affect Skin: no rash or erythema Principal Diagnosis 1. Acute L pontine CVA 2. R vertebral artery stenosis 3. Dysarthria and dysequilibrium d/t #1 Discharge Exam Vital Signs Temp Pulse Pulse Resp BP BP BP 05/28/21 12:01 36.1 C L 65 20 165/90 H 161/92 H 05/28/21 11:00 36.5 C 70 18 94/58 L 05/28/21 07:27 36.6 C 62 20 181/76 H 05/28/21 06:16 64 05/28/21 03:36 36.6 C 60 18 148/70 H 05/27/21 23:00 63 05/27/21 22:42 37.0 C 54 L 18 139/75 05/27/21 19:18 36.4 C L 83 19 118/69 05/27/21 18:09 36.4 C L 84 16 121/81 05/27/21 17:22 83 05/27/21 17:00 77 16 134/68 05/27/21 16:30 73 15 140/102 H 05/27/21 16:00 59 L 17 145/77 H 05/27/21 15:30 55 L 15 143/75 H 05/27/21 15:00 64 23 142/94 H 05/27/21 14:30 73 19 120/100 Constitutional WD/WN, vitals as above Eyes PERRL, conjunctivae normal, anicteric sclerae Respiratory normal respiratory effort, lungs clear to auscultation Cardiovascular RRR, no murmur, no edema Gastrointestinal (Abdomen) normal bowel sounds, soft, nontender, no hepatosplenomegaly Musculoskeletal no cyanosis or clubbing, extremities motor strength 5/5 Skin no rashes, warm and dry Neurologic normal touch/pain/proprioception and CN's II-XI intact bilaterally Speech / Cognition: + abnormal speech Motor/Sensory: no pronator drift Cranial Nerves: + tongue not midline (deviation to right) slurred speech/dysarthria observed Psychiatric A+Ox3, euthymic affect Discharge Data Allergies Allergy/AdvReac Type Severity Reaction Status Date / Time Iodinated Contrast Media Allergy Unknown _ Verified 05/27/21 12:58 Penicillins Allergy Unknown Unknown Verified 05/27/21 12:58 asparagus AdvReac Gastrointestinal Verified 05/27/21 12:58 Upset tomato AdvReac Gastrointestinal Verified 05/27/21 12:58 Upset Consultations Neurology consulted, patient seen by Dr. Mckeon who agreed with dual antiplatelet therapy, echo, and therapy eval. Will plan for 3 weeks of dual antiplatelet therapy and then d/c ASA and continue Plavix 75mg daily extermination supervisor. Procedures Performed None Ordered Studies Head CTA 05/24/21 17:33 CT angio head w con, CT angio neck with con, CT head/brain wo con CLINICAL HISTORY: Stroke Like Symptoms TECHNIQUE: Contiguous axial CT images of the head were acquired from the base of the skull to the vertex without intravenous contrast administration. CT angiography of the head and neck was performed following intravenous administration of iodinated contrast. Automated dose lowering techniques and/or adjustment according to patient size were utilized for this examination. Comparison: None available at the time of this dictation. FINDINGS: CT head: Areas of decreased attenuation are present in the periventricular and subcortical white matter bilaterally consistent with small vessel ischemic disease. Generalized cerebral atrophy with commensurate enlargement of the ventricles, sulci, and cisterns is also present. There is no acute intracranial hemorrhage or evidence of acute territorial infarction. No shift of the midline structures, mass effect, or extra-axial abnormalities are shown. Atherosclerot ic calcifications are present in the intracranial segments of the internal carotid arteries. CTA Neck: A 3 vessel aortic arch is shown. Atherosclerotic plaque is present in the aortic arch and at the origin of the great vessels. Atherosclerotic plaque is present at the origin of the right vertebral artery. The common carotid, external carotid, cervical segments of the internal carotid arteries, and the cervical segments of the vertebral arteries are patent. At the C4-C5 level, there is focal narrowing of the right vertebral artery due to osteophyte formation and facet arthropathy. This results in likely greater than 70% narrowing of the vessel. Incidentally noted is tortuosity of the proximal common carotid arteries. The left vertebral artery is dominant. Biapical scarring is seen in the lungs. CTA Head: The anterior and posterior cerebral circulations are patent. No hemodynamically significant stenosis, aneurysm, dissection, or arteriovenous malformation is shown. Atherosclerotic disease is noted. IMPRESSION: 1. No occlusion, hemodynamically significant stenosis, aneurysm, dissection, or arteriovenous malformation in the major intracranial arteries. 2. There is likely hemodynamically significant stenosis of the right vertebral artery at C4-C5 due to degenerative changes in the cervical spine. This finding is likely chronic. 3. No acute intracranial hemorrhage, evidence of acute territorial infarction, or other acute intracranial disease process. Expected age-related changes of the brain parenchyma are seen. Assessment of stenosis of the internal carotid arteries is based on NASCET criteria. ACT 112: Negative or not required by law. Electronically signed by: Martinez Soto M.D. 05/24/2021 8:16 PM Neck CTA 05/24/21 17:33 CT angio head w con, CT angio neck with con, CT head/brain wo con CLINICAL HISTORY: Stroke Like Symptoms TECHNIQUE: Contiguous axial CT images of the head were acquired from the base of the skull to the vertex without intravenous contrast administration. CT angiography of the head and neck was performed following intravenous administration of iodinated contrast. Automated dose lowering techniques and/or adjustment according to patient size were utilized for this examination. Comparison: None available at the time of this dictation. FINDINGS: CT head: Areas of decreased attenuation are present in the periventricular and subcortical white matter bilaterally consistent with small vessel ischemic disease. Generalized cerebral atrophy with commensurate enlargement of the ventricles, sulci, and cisterns is also present. There is no acute intracranial hemorrhage or evidence of acute territorial infarction. No shift of the midline structures, mass effect, or extra-axial abnormalities are shown. Atherosclerotic calcifications are present in the intracranial segments of the internal carotid arteries. CTA Neck: A 3 vessel aortic arch is shown. Atherosclerotic plaque is present in the aortic arch and at the origin of the great vessels. Atherosclerotic plaque is present at the origin of the right vertebral artery. The common carotid, external carotid, cervical segments of the internal carotid arteries, and the cervical segments of the vertebral arteries are patent. At the C4-C5 level, there is focal narrowing of the right vertebral artery due to osteophyte formation and facet arthropathy. This results in likely greater than 70% narrowing of the vessel. Incidentally noted is tortuosity of the proximal common carotid arteries. The left vertebral artery is dominant. Biapical scarring is seen in the lungs. CTA Head: The anterior and posterior cerebral circulations are patent. No hemodynamically significant stenosis, aneurysm, dissection, or arteriovenous malformation is shown. Atherosclerotic disease is noted. IMPRESSION: 1. No occlusion, hemodynamically significant stenosis, aneurysm, dissection, or arteriovenous malformation in the major intracranial arteries. 2. There is likely hemodynamically significant stenosis of the right vertebral artery at C4-C5 due to degenerative changes in the cervical spine. This finding is likely chronic. 3. No acute intracranial hemorrhage, evidence of acute territorial infarction, or other acute intracranial disease process. Expected age-related changes of the brain parenchyma are seen. Assessment of stenosis of the internal carotid arteries is based on NASCET criteria. ACT 112: Negative or not required by law. Electronically signed by: Martinez Soto M.D. 05/24/2021 8:16 PM MR brain wo con CLINICAL HISTORY: G45.9 - Transient cerebral ischemic attack, unspecified. Episode of vertigo and slurred speech on Tuesday. COMPARISON STUDY: No previous studies for comparison. TECHNIQUE: Multiplanar multisequence images of the Brain were performed without IV contrast. Diffusion weighted imaging and ADC mapping was also performed. FINDINGS: Extra-axial space: There is no evidence for a subdural hematoma, There are no extra-axial fluid collections. Ventricles and cisterns: The ventricles are mildly dilated bilaterally. There is no evidence for midline shift or mass effect. Parenchyma: There is evidence for an acute infarct involving the brainstem and superior aspect of the rowdy centrally and to the left. Largest infarct measures approximately 4.5 mm. Acute diffusion abnormalities are noted on diffusion weighted imaging and ADC mapping. There is otherwise normal jay-white differentiation. There is mild cerebral cortical atrophy present. The sulci and gyri appear normal without effacement. The midline structures are unremarkable. The posterior fossa structures appear normal. There is no evidence for cerebellar infarct. There is no evidence for mass lesion. Osseous structures: The paranasal sinuses are well aerated. The mastoid air cells are well aerated. Soft tissues: No focal soft tissue abnormalities are identified. IMPRESSION: Evidence for an acute infarct involving the brainstem and superior aspect of the rowdy centrally and to the left. The patient was sent to the emergency department following the study. Dr. Evans was called with the results. ACT 112: Negative or not required by law. Electronically signed by: Db Kirk M.D. 05/27/2021 12:24 PM Echocardiogram 05/28/21 No cardiac source of emboli noted. Left ventricular systolic function is mild to moderately reduced (LVEF 35-40%). Injection of contrast documented no interatrial shunt. There is mild mitral regurgitation. Hospital Course (1) CVA (cerebral vascular accident): Evidence for an acute infarct involving the brainstem and superior aspect of the rowdy centrally and to the left. There is likely hemodynamically significant stenosis of the right vertebral artery at C4-C5 due to degenerative changes in the cervical spine, uncertain significane with relation to his acute event. Patient was started on dual antiplatelet therapy with Aspirin 81mg daily and Plavix 75mg daily. He was continued on Rosuvastatin 5mg daily (prior h/o statin intolerance due to myalgias). An echocardiogram to evaluate for embolic source was ordered and completed with results as noted above. Neurology was consulted as well due to acute cva - appreciate Dr. Mckeon's recommendations. Agree to use of dual antiplatelet therapy for the next 3 weeks and then de- escalate down to single agent with Plavix 75mg daily. Lipid profile completed this AM: LDL 104, TG 78, HDL 76 (which is excellent given his age), overall demonstrates great control. Would advise ongoing use of Rosuvastatin. BP mildly elevated while in house -- permissive in acute event to continue adequate perfusion. May require adjustments in BP meds if remains elevated upon discharge. (2) Dysequilibrium: Secondary to acute CVA. PT/OT consulted. This patient will require ongoing PT/OT at home. (3) Vertebral artery stenosis: Likely hemodynamically significant stenosis of the right vertebral artery at C4-C5 due to degenerative changes in the cervical spine- results in likely greater than 70% narrowing. Will refer to vascular as an outpatient to determine if any intervention is necessary. (4) Dysarthria: Secondary to #1. Patient seen by speech therapy and will continue those services upon discharge home. (5) Ischemic cardiomyopathy: Secondary to LAD disease in 2009. Last echo 2018, one repeated during this visit with results as noted above. Continue BB, ASA, LUC, Statin. Follow up with Dr. Arredondo as outpatient. (6) Arteriosclerotic coronary artery disease: As per #5 (7) Hyperlipidemia: Continue rosuvastatin 5mg PO daily and Coq10 Patient is medically and hemodynamically stable for discharge home today with outpatient follow ups as outlined in discharge instructions. I attest that I did have a face to face interaction with this patient and given his acute CVA, is a candidate for home health services including PT/OT and ST. Total Time Total Time Spent Total Time Spent (In Minutes): 45 minutes Discharge Plan Discharge Items Patient Disposition: Home - Home Health Services Reason For Visit: CVA Discharge Diagnosis: 1. Acute L pontine stroke 2. Vertebral artery stenosis on right Activity: Resume your previous activity Non-emergency contact: Primary Care Provider and Neurologist Call non-emergency contact if: you have any medication questions and your symptoms worsen Follow-up/Referrals: William Mckeon MD [Physician] - 06/15/21 (Follow up in 1-2 weeks ) Nacho Rolle MD [Primary Care Provider] - 06/01/21 2:30 pm Jose Galan DO [Physician] - Diet: Heart Healthy Addtl Attending Provider Instructions: 1. Take all medications as directed. 2. Home health will follow up with you to continue physical therapy, occupational therapy, and speech therapy 3. Continue Aspirin and Plavix combination for the next 3 weeks, then can stop Aspirin, continue Plavix. 4. Follow up with neurology as scheduled. 5. Referral will be made to vascular surgery due to findings of a narrowing in your vertebral artery. 6. Follow up with your PCP within 1 week of discharge as scheduled. Pending Studies at Discharge: No Stand-Alone Forms: My [facility] [employer], Smoking Cessation Medications and DC Order Prescriptions: New clopidogrel 75 mg Tablet 75 mg PO DAILY Qty: 30 RF: 0 aspirin 81 mg Tablet,Delayed Release (Dr/Ec) 81 mg PO QAM 30 Days Qty: 30 RF: 0 Continued coenzyme Q10 200 mg capsule 200 mg PO QAM RF: 0 fexofenadine 180 mg tablet 180 mg PO DAILY RF: 0 metoprolol succinate 50 mg tablet extended release 24 hr 50 mg PO QAM RF: 0 vitamin E (dl, acetate) 100 unit capsule 100 units PO QAM RF: 0 mometasone 50 mcg/actuation [place],Non-Aerosol 1 spray INTRANASAL BID RF: 0 cholecalciferol (vitamin D3) [Vitamin D3] 25 mcg (1,000 unit) Tablet 25 mcg PO QAM RF: 0 rosuvastatin 5 mg tablet 5 mg PO .ON HOLD RF: 0 lisinopril 20 mg tablet 20 mg PO QAM RF: 0 zinc 50 mg Tablet 50 mg PO QAM RF: 0 Prostate Health 160-100-100 mg-unit-mcg Tablet 1 tab PO QAM RF: 0 Discontinued aspirin 325 mg Tablet 325 mg PO QAM RF: 0 Discharge Orders: Discharge Order (Routine); Ordered 05/28/21 Ordered By: Rima Mccord/Other Patient Handouts: Stroke: Self-Care Admission Data Admit Date/Time: 05/27/21 13:12 Attending Provider: Khris Ochoa Admit Provider: Romeo Blunt Primary Care Provider: Nacho Rolle Other Providers: Romeo Blunt ; William Mckeon ; [facility],Referral Center Coding Level of Care Code D/C DAY MANAGEMENT >30 MINS Diagnoses CVA (cerebral vascular accident) I63.9 CVA mechanism: unspecified Dysequilibrium R42 Vertebral artery stenosis I65.09 Dysarthria R47.1 Ischemic cardiomyopathy I25.5 Arteriosclerotic coronary artery disease I25.10 Hyperlipidemia E78.5
--- NOTE | 2021-05-29 09:25 | Pharmacy Report ---
Pharmacist Stroke Counseling - Date of Service May 29, 2021 - Scope: Pharmacy has been consulted to provide medication discharge counseling for this patient admitted with ischemic stroke as per the Pharmacist Discharge Counseling for Stroke Patients Protocol. - Medications on Discharge: Home Medications Medication Instructions Recorded Confirmed coenzyme Q10 200 mg capsule 200 mg PO QAM cap 04/03/19 05/27/21 fexofenadine 180 mg tablet 180 mg PO DAILY tab 04/03/19 05/27/21 metoprolol succinate 50 mg 50 mg PO QAM tab 04/03/19 05/27/21 tablet,extended release 24 hr vitamin E (dl, acetate) 45 mg (100 100 units PO QAM cap 04/03/19 05/27/21 unit) capsule cholecalciferol (vitamin D3) 25 25 mcg PO QAM 05/24/21 05/27/21 mcg (1,000 unit) tablet (Vitamin D3) mometasone 50 mcg/actuation nasal 1 spray INTRANASAL BID 05/24/21 05/27/21 spray rosuvastatin 5 mg tablet 5 mg PO .ON HOLD 05/24/21 05/27/21 lisinopril 20 mg tablet 20 mg PO QAM 05/27/21 05/27/21 saw palm 160 mg-vit E 100 1 tab PO QAM 05/27/21 05/27/21 unit-selen 100 kzd-ycuz-jmvlmn-pygeum tablet ([employer]) zinc 50 mg tablet 50 mg PO QAM 05/27/21 05/27/21 New Rx's Medication Instructions Recorded aspirin 81 mg tablet,delayed 81 mg PO QAM 30 Days #30 tab 05/28/21 release clopidogrel 75 mg tablet 75 mg PO DAILY #30 tab 05/28/21 - Action: The above medications, specifically ones for stroke treatment/prophylaxis, have been reviewed in detail with the patient and/or patient sales representative consultant(s) prior to discharge. This includes indication, common adverse reactions, drug interactions, and medication administration. Medication counseling has been employed using the teach-back method to ensure understanding. - Outcome: The patient and/or patient sales representative consultant(s) have demonstrated understanding of the medications. Additional comments: - Patient familiar with both aspirin and rosuvastatin as he has been on both of these medications in the past. He reports experiencing muscle pains in the past on a high dose stain, therefore he stopped it. He was prescribed rosuvastatin 5 mg daily. He admits to not taking this recently. He has refilled the prescription and agrees to resume. Advised him to notify his PCP of side effects. -Instructed the patient to STOP taking aspirin 325 mg and start aspirin 81 mg. Take both aspirin and clopidogrel x 21 days and then stop aspirin but continue clopidogrel. Thank you for allowing pharmacy to be involved in the care of this patient. Please call [phone] with any additional questions
== END 2021-05-28 16:17 | disposition home health service (06) | DRG 65 ==
LOC: ED 11:37 → SUATTDRO 13:12 → 2N 13:12